=== PATIENT | female | born 1990 | race Caucasian/White ===

== ENCOUNTER 2017-07-26 17:07 | Emergency (ER) | payer OTHER ==
[2017-07-26 19:34] LABS: URINE BLOOD (Dip) POC Negative (NEGATIVE); URINE GLUCOSE (Dip) POC Negative (NEGATIVE); URINE KETONES (Dip) POC 3+ (NEGATIVE); URINE LEUKOCYTE EST (Dip) POC 1+ (NEGATIVE); URINE NITRITE (Dip) POC Negative (NEGATIVE); URINE TOTAL PROTEIN POC Negative (NEGATIVE)
== END 2017-07-26 20:24 | disposition home or self-care (01) ==
LOC: FTE 17:07
DX: N30.90 Cystitis, unspecified without hematuria (principal)
CPT/HCPCS: 81003; 99283

== ENCOUNTER 2018-01-12 09:50 | Emergency (ER) | payer OTHER ==
[2018-01-12] MEDS: SOD CHLORIDE 0.9% 1,000 ML IV (10:32)
[2018-01-12] MEDS: ASPIRIN 325 MG TAB PO (10:32)
[2018-01-12] MEDS: ONDANSETRON 4 MG INJ IV (10:33)
[2018-01-12 10:40] LABS: ADD MAN DIFF? NO
[2018-01-12 10:41] LABS: BASOPHILS % 0.6 % (0.0-2.0); EOSINOPHILS # 0.3 10^3/ul (0.0-0.5); EOSINOPHILS % 3.8 % (0.0-7.0); HEMATOCRIT 38.5 % (37.0-47.0); HEMOGLOBIN 12.6 g/dl (12.0-16.0); LYMPHOCYTES # 2.2 10^3/ul (0.8-2.9); LYMPHOCYTES % 31.5 % (15.0-51.0); MEAN CORPUSCULAR HEMOGLOBIN 28.5 pg (29.0-33.0); MEAN CORPUSCULAR HGB CONC 32.7 g/dl (32.0-37.0); MEAN CORPUSCULAR VOLUME 87.1 fl (82.0-101.0); MEAN PLATELET VOLUME 12.4 fl (7.4-10.4); MONOCYTE # 0.5 10^3/ul (0.3-0.9); MONOCYTES % 6.9 % (0.0-11.0); NEUTROPHIL # 4.1 10^3/ul (1.6-7.5); NEUTROPHILS % 57.1 % (39.0-77.0); PLATELET COUNT 171 10^3/UL (140-415); RED BLOOD COUNT 4.42 10^6/ul (4.20-5.40); RED CELL DISTRIBUTION WIDTH 14.3 % (11.5-14.5)
[2018-01-12 10:41] LABS: WHITE BLOOD COUNT 7.1 10^3/ul (4.8-10.8)
[2018-01-12 10:51] LABS: ADD UMIC YES; UR ASCORBIC ACID NEGATIVE (NEGATIVE); UR BACTERIA FEW /HPF (NONE SEEN); UR BILIRUBIN (Dip) NEGATIVE (NEGATIVE); UR BLOOD (Dip) NEGATIVE (NEGATIVE); UR CLARITY CLOUDY (CLEAR); UR COLOR YELLOW (YELLOW); UR GLUCOSE (Dip) NEGATIVE (NEGATIVE); UR KETONES (Dip) 1+ mg/dL (NEGATIVE); UR LEUKOCYTE ESTERASE (Dip) 2+ Leu/ul (NEGATIVE); UR MUCUS MODERATE /HPF (NONE SEEN); UR NITRITE (Dip) NEGATIVE (NEGATIVE); UR RBC 1 /HPF (0-5); UR SPECIFIC GRAVITY (Dip) 1.021 (1.003-1.030); UR SQUAMOUS EPITHELIAL CELL MANY /HPF (FEW); UR TOTAL PROTEIN (Dip) NEGATIVE (NEGATIVE); UR UROBILINOGEN (Dip) NEGATIVE (NEGATIVE); UR WBC 9 /HPF (0-5)
[2018-01-12 11:04] LABS: ALANINE AMINOTRANSFERASE 16 IU/L (13-69); ALBUMIN 4.4 g/dl (3.3-4.9); ALBUMIN/GLOBULIN RATIO 1.41; ALKALINE PHOSPHATASE 63 IU/L (42-121); ANION GAP 18 (8-16); ASPARTATE AMINO TRANSFERASE 18 IU/L (15-46); BLOOD UREA NITROGEN 13 mg/dl (7-20); CALCIUM 9.1 mg/dl (8.4-10.2); CARBON DIOXIDE 26 mmol/L (21-31); CHLORIDE 102 mmol/L (97-110); CREATININE 0.58 mg/dl (0.44-1.00); GLUCOSE 83 mg/dl (70-220); POTASSIUM 3.3 mmol/L (3.5-5.1); SODIUM 143 mmol/L (135-144); TOTAL PROTEIN 7.5 g/dl (6.1-8.1)
[2018-01-12 11:20] LABS: TROPONIN-I < 0.012 ng/ml (0.000-0.120)
[2018-01-12 12:33] LABS: INR 1.05; PROTIME 13.8 Sec (11.9-14.9); PT RATIO 1.1
[2018-01-12] MEDS: LORAZEPAM 1 MG TAB PO (12:59)
[2018-01-12] MEDS: POTASSIUM CHLORIDE (SR) 20 MEQ TAB PO (13:00)
== END 2018-01-12 13:13 | disposition home or self-care (01) ==
LOC: FTE 09:50
DX: N39.0 Urinary tract infection, site not specified (principal); F41.9 Anxiety disorder, unspecified; Z79.82 Long term (current) use of aspirin
CPT/HCPCS: 71046; 80053; 81001; 81025; 84484; 85025; 85610; 85730; 93005; 96361; 96374; 99285-25

== ENCOUNTER 2018-08-20 17:30 | Emergency (ER) | payer OTHER ==
[2018-08-20] MEDS: SOD CHLORIDE 0.9% 500 ML IV (22:06)
[2018-08-20 22:07] LABS: ADD MAN DIFF? NO
[2018-08-20 22:10] LABS: WHITE BLOOD COUNT 10.4 10^3/ul (4.8-10.8)
[2018-08-20 22:10] LABS: BASOPHILS % 0.4 % (0.0-2.0); EOSINOPHILS # 0.4 10^3/ul (0.0-0.5); EOSINOPHILS % 3.6 % (0.0-7.0); HEMATOCRIT 35.1 % (37.0-47.0); HEMOGLOBIN 11.5 g/dl (12.0-16.0); LYMPHOCYTES # 2.8 10^3/ul (0.8-2.9); LYMPHOCYTES % 26.5 % (15.0-51.0); MEAN CORPUSCULAR HEMOGLOBIN 27.3 pg (29.0-33.0); MEAN CORPUSCULAR HGB CONC 32.8 g/dl (32.0-37.0); MEAN CORPUSCULAR VOLUME 83.2 fl (82.0-101.0); MEAN PLATELET VOLUME 11.7 fl (7.4-10.4); MONOCYTE # 0.8 10^3/ul (0.3-0.9); MONOCYTES % 7.2 % (0.0-11.0); NEUTROPHIL # 6.5 10^3/ul (1.6-7.5); PLATELET COUNT 232 10^3/UL (140-415); RED BLOOD COUNT 4.22 10^6/ul (4.20-5.40)
[2018-08-20 22:21] LABS: ADD UMIC YES; UR AMORPHOUS CRYSTAL MODERATE /HPF (NONE SEEN); UR ASCORBIC ACID NEGATIVE (NEGATIVE); UR BACTERIA FEW /HPF (NONE SEEN); UR BILIRUBIN (Dip) NEGATIVE (NEGATIVE); UR BLOOD (Dip) NEGATIVE (NEGATIVE); UR CLARITY CLOUDY (CLEAR); UR COLOR YELLOW (YELLOW); UR GLUCOSE (Dip) 3+ mg/dL (NEGATIVE); UR KETONES (Dip) 1+ mg/dL (NEGATIVE); UR LEUKOCYTE ESTERASE (Dip) NEGATIVE Leu/ul (NEGATIVE); UR MUCUS MANY /HPF (NONE SEEN); UR NITRITE (Dip) NEGATIVE (NEGATIVE); UR RBC 3 /HPF (0-5); UR SPECIFIC GRAVITY (Dip) 1.025 (1.003-1.030); UR SQUAMOUS EPITHELIAL CELL FEW /HPF (FEW); UR TOTAL PROTEIN (Dip) NEGATIVE (NEGATIVE); UR UROBILINOGEN (Dip) 1+ mg/dL (NEGATIVE); UR WBC 2 /HPF (0-5)
[2018-08-20 22:30] LABS: ANION GAP 13 (5-13); BLOOD UREA NITROGEN 10 mg/dl (7-20); CALCIUM 9.2 mg/dl (8.4-10.2); CARBON DIOXIDE 22 mmol/L (21-31); CHLORIDE 104 mmol/L (97-110); CREATININE 0.38 mg/dl (0.44-1.00); Estimated GFR > 60 mL/min (>60); GLUCOSE 96 mg/dl (70-220); SODIUM 139 mmol/L (135-144)
[2018-08-20 22:34] LABS: D-DIMER 699.71 ng/ml (<460)
[2018-08-20 22:40] LABS: INR 0.85; PROTIME 11.7 Sec (11.9-14.9); PT RATIO 0.9
[2018-08-20 22:41] LABS: PARTIAL THROMBOPLASTIN TIME 28.6 Sec (23.0-35.0)
[2018-08-20 22:42] LABS: TROPONIN-I < 0.012 ng/ml (0.000-0.120)
[2018-08-20] MEDS: POTASSIUM CHLORIDE (SR) 20 MEQ TAB PO (23:16)
== END 2018-08-21 00:05 | disposition home or self-care (01) ==
LOC: FTE 08-21 00:05
DX: O99.89 Other specified diseases and conditions complicating pregnancy, childbirth and the puerperium (principal); R07.9 Chest pain, unspecified; E87.6 Hypokalemia; O99.281 Endocrine, nutritional and metabolic diseases complicating pregnancy, first trimester; O99.011 Anemia complicating pregnancy, first trimester; D64.9 Anemia, unspecified; Z3A.14 14 weeks gestation of pregnancy
CPT/HCPCS: 36415; 80048; 81001; 84484; 85025; 85378; 85610; 85730; 93005; 96360; 99284-25

== ENCOUNTER 2019-01-05 12:19 | Inpatient (IN) | payer OTHER ==
[2019-01-05 13:28] LABS: ADD MAN DIFF? NO
[2019-01-05 13:35] LABS: WHITE BLOOD COUNT 8.1 10^3/ul (4.8-10.8)
[2019-01-05 13:35] LABS: ABNORMAL IP MESSAGE 1; BASOPHILS % 0.5 % (0.0-2.0); EOSINOPHILS # 0.2 10^3/ul (0.0-0.5); EOSINOPHILS % 2.1 % (0.0-7.0); HEMATOCRIT 24.3 % (37.0-47.0); HEMOGLOBIN 7.2 g/dl (12.0-16.0); LYMPHOCYTES # 1.8 10^3/ul (0.8-2.9); LYMPHOCYTES % 21.7 % (15.0-51.0); MEAN CORPUSCULAR HEMOGLOBIN 21.5 pg (29.0-33.0); MEAN CORPUSCULAR HGB CONC 29.6 g/dl (32.0-37.0); MEAN CORPUSCULAR VOLUME 72.5 fl (82.0-101.0); MEAN PLATELET VOLUME 11.7 fl (7.4-10.4); MONOCYTE # 0.4 10^3/ul (0.3-0.9); MONOCYTES % 4.3 % (0.0-11.0); NEUTROPHIL # 5.8 10^3/ul (1.6-7.5); NEUTROPHILS % 70.8 % (39.0-77.0); PLATELET COUNT 167 10^3/UL (140-415); RED BLOOD COUNT 3.35 10^6/ul (4.20-5.40)
[2019-01-05 13:37] LABS: ADD UMIC YES; POSITIVE DIFF @See below; UR ASCORBIC ACID NEGATIVE (NEGATIVE); UR BACTERIA FEW /HPF (NONE SEEN); UR BILIRUBIN (Dip) NEGATIVE (NEGATIVE); UR BLOOD (Dip) NEGATIVE (NEGATIVE); UR CLARITY SLIGHTLY CLOUDY (CLEAR); UR COLOR YELLOW (YELLOW); UR GLUCOSE (Dip) NEGATIVE (NEGATIVE); UR KETONES (Dip) NEGATIVE (NEGATIVE); UR LEUKOCYTE ESTERASE (Dip) TRACE Leu/ul (NEGATIVE); UR MUCUS FEW /HPF (NONE SEEN); UR NITRITE (Dip) NEGATIVE (NEGATIVE); UR RBC 0 /HPF (0-5); UR SPECIFIC GRAVITY (Dip) 1.016 (1.003-1.030); UR SQUAMOUS EPITHELIAL CELL FEW /HPF (FEW); UR TOTAL PROTEIN (Dip) NEGATIVE (NEGATIVE); UR UROBILINOGEN (Dip) NEGATIVE (NEGATIVE); UR WBC 4 /HPF (0-5)
[2019-01-05 13:53] LABS: ALANINE AMINOTRANSFERASE 9 IU/L (13-69); ALBUMIN 3.3 g/dl (3.3-4.9); ALBUMIN/GLOBULIN RATIO 1.03; ALKALINE PHOSPHATASE 83 IU/L (42-121); AMYLASE 116 U/L (11-123); ANION GAP 6 (5-13); ASPARTATE AMINO TRANSFERASE 13 IU/L (15-46); BILIRUBIN,INDIRECT 0.6 mg/dl (0-1.1); BILIRUBIN,TOTAL 0.6 mg/dl (0.2-1.3); BLOOD UREA NITROGEN 8 mg/dl (7-20); CALCIUM 8.5 mg/dl (8.4-10.2); CARBON DIOXIDE 22 mmol/L (21-31); CHLORIDE 107 mmol/L (97-110); CREATININE 0.48 mg/dl (0.44-1.00); Estimated GFR > 60 mL/min (>60); GLUCOSE 127 mg/dl (70-220); LIPASE 122 U/L (23-300); POTASSIUM 3.7 mmol/L (3.5-5.1); SODIUM 135 mmol/L (135-144); TOTAL PROTEIN 6.5 g/dl (6.1-8.1)
[2019-01-05] MEDS: CEFTRIAXONE 1 GM/50 ML (PMX) 50 ML IVPB (17:45)
[2019-01-05] MEDS: SOD CHLORIDE 0.9% 1,000 ML IV (17:45)
[2019-01-05] MEDS: ACETAMINOPHEN 325 MG TAB PO ×2 (17:52→20:25)
[2019-01-05] MEDS: HYDROCODONE/APAP (5/325) TAB PO (22:03)
[2019-01-06] MEDS: SOD CHLORIDE 0.9% 1,000 ML IV (01:11)
[2019-01-06] MEDS ORDERED: FERROUS FUMARATE (SR) TAB PO (09:00)
[2019-01-06] MEDS: PRENATAL VITAMIN PO (11:56)
[2019-01-06] MEDS: FERROUS SULFATE (EC) 325 MG TAB PO (11:56)
== END 2019-01-06 12:47 | disposition home or self-care (01) | DRG 833 ==
LOC: OBT 12:19 → L-D 12:19 → OBT 17:00 → L-D 17:00
DX: O23.03 Infections of kidney in pregnancy, third trimester (principal); Z3A.33 33 weeks gestation of pregnancy
CPT/HCPCS: 76705; 76817; 76818; 80053; 81001; 82150; 83690; 85025; 87086

== ENCOUNTER 2019-02-06 14:06 | Outpatient (CLI) | payer OTHER ==
[2019-02-06] MEDS: BETAMET NA PHOS/AC(6 MG/ML) 2 ML INJ SYG IM (16:00)
[2019-02-06 18:43] LABS: ABNORMAL IP MESSAGE 1; HEMATOCRIT 23.1 % (37.0-47.0); MEAN CORPUSCULAR HEMOGLOBIN 20.1 pg (29.0-33.0); MEAN CORPUSCULAR HGB CONC 29.4 g/dl (32.0-37.0); MEAN CORPUSCULAR VOLUME 68.3 fl (82.0-101.0); MEAN PLATELET VOLUME 11.2 fl (7.4-10.4); PLATELET COUNT 156 10^3/UL (140-415); RED BLOOD COUNT 3.38 10^6/ul (4.20-5.40); RED CELL DISTRIBUTION WIDTH 18.4 % (11.5-14.5)
[2019-02-06 18:43] LABS: WHITE BLOOD COUNT 7.8 10^3/ul (4.8-10.8)
[2019-02-06 18:49] LABS: ADD MAN DIFF? YES; HEMOGLOBIN 6.8 g/dl (12.0-16.0); POSITIVE DIFF @See below
[2019-02-06 19:00] LABS: ALANINE AMINOTRANSFERASE 12 IU/L (13-69); ALBUMIN 3.1 g/dl (3.3-4.9); ALKALINE PHOSPHATASE 125 IU/L (42-121); AMYLASE 94 U/L (11-123); ANION GAP 7 (5-13); ASPARTATE AMINO TRANSFERASE 13 IU/L (15-46); BILIRUBIN,INDIRECT 0.5 mg/dl (0-1.1); BILIRUBIN,TOTAL 0.5 mg/dl (0.2-1.3); BLOOD UREA NITROGEN 12 mg/dl (7-20); CALCIUM 8.7 mg/dl (8.4-10.2); CARBON DIOXIDE 22 mmol/L (21-31); CHLORIDE 109 mmol/L (97-110); CREATININE 0.46 mg/dl (0.44-1.00); Estimated GFR > 60 mL/min (>60); GLUCOSE 77 mg/dl (70-220); LIPASE 155 U/L (23-300); POTASSIUM 3.9 mmol/L (3.5-5.1); SODIUM 138 mmol/L (135-144); TOTAL PROTEIN 6.2 g/dl (6.1-8.1)
[2019-02-06 19:22] LABS: ANISOCYTOSIS 2+ (0-0); EOSINOPHILS % (M) 1 % (0-7); GIANT THROMBO% (M) 12 % (0-0); LYMPHOCYTES #M 2.3 10^3/ul (0.8-2.9); LYMPHOCYTES % (M) 30 % (15-51); MICROCYTOSIS 2+ (0-0); MONOCYTE #M 0.3 10^3/ul (0.3-0.9); MONOCYTES % (M) 4 % (0-11); PLATELET ESTIMATE NORMAL; POIKILOCYTOSIS 2+ (0-0); POLYCHROMASIA 2+ (0-0); SEGMENTED NEUTROPHILS (M) % 65 % (39-77); SMUDGE%M 1 % (0-0)
[2019-02-06] MEDS: LACTATED RINGER'S 1,000 ML IV (21:04)
[2019-02-06] MEDS: SOD FERRIC GLUC COMPLX 125 MG in SOD CHLORIDE 0.9% 100 ML IVPB ×2 (21:05→23:00)
[2019-02-07] MEDS ORDERED: SOD FERRIC GLUC COMPLX 125 MG in SOD CHLORIDE 0.9% 100 ML IVPB (13:00)
== END 2019-02-06 23:48 | disposition home or self-care (01) ==
LOC: OBT 14:06 → L-D 14:07 → OBT 23:48
DX: O22.23 Superficial thrombophlebitis in pregnancy, third trimester (principal); O36.8330 Maternal care for abnormalities of the fetal heart rate or rhythm, third trimester, not applicable or unspecified; Z3A.38 38 weeks gestation of pregnancy
CPT/HCPCS: 76818; 80053; 82150; 83690; 85025

== ENCOUNTER 2019-02-08 09:00 | Outpatient (CLI) | payer OTHER | END 2019-02-08 10:15 | disposition home or self-care (01) | LOC: OBT 09:00 → L-D 09:02 → OBT 10:15 | DX: O36.8130 Decreased fetal movements, third trimester, not applicable or unspecified (principal); Z3A.38 38 weeks gestation of pregnancy | CPT/HCPCS: 76815; 76818 ==

== ENCOUNTER 2019-02-09 07:18 | Inpatient (IN) | payer OTHER ==
[2019-02-09] MEDS: LACTATED RINGER'S 1,000 ML IV ×3 (09:43→15:36)
[2019-02-09] MEDS ORDERED: MISOPROSTOL 200 MCG TAB PR (10:00)
[2019-02-09] MEDS ORDERED: OXYTOCIN 30 UNITS/LR 500 ML IV ×2 (10:00)
[2019-02-09] MEDS ORDERED: LIDOCAINE 1% (MPF) 30 ML INJ INJ (10:00)
[2019-02-09] MEDS ORDERED: CARBOPROST 250 MCG INJ IM (10:00)
[2019-02-09] MEDS ORDERED: BUTORPHANOL 2 MG INJ IV (10:00)
[2019-02-09] MEDS ORDERED: METHYLERGONOVINE 0.2 MG INJ IM (10:00)
[2019-02-09 10:20] LABS: ADD UMIC NO; UR ASCORBIC ACID NEGATIVE (NEGATIVE); UR BACTERIA FEW /HPF (NONE SEEN); UR BILIRUBIN (Dip) NEGATIVE (NEGATIVE); UR BLOOD (Dip) NEGATIVE (NEGATIVE); UR CLARITY SLIGHTLY CLOUDY (CLEAR); UR COLOR YELLOW (YELLOW); UR GLUCOSE (Dip) NEGATIVE (NEGATIVE); UR KETONES (Dip) NEGATIVE (NEGATIVE); UR LEUKOCYTE ESTERASE (Dip) NEGATIVE Leu/ul (NEGATIVE); UR MUCUS FEW /HPF (NONE SEEN); UR NITRITE (Dip) NEGATIVE (NEGATIVE); UR RBC 0 /HPF (0-5); UR SPECIFIC GRAVITY (Dip) 1.019 (1.003-1.030); UR SQUAMOUS EPITHELIAL CELL FEW /HPF (FEW); UR TOTAL PROTEIN (Dip) NEGATIVE (NEGATIVE); UR UROBILINOGEN (Dip) NEGATIVE (NEGATIVE); UR WBC 2 /HPF (0-5)
[2019-02-09 10:21] LABS: ADD MAN DIFF? NO
[2019-02-09 10:30] LABS: WHITE BLOOD COUNT 8.9 10^3/ul (4.8-10.8)
[2019-02-09 10:30] LABS: ABNORMAL IP MESSAGE 1; BASOPHILS % 0.4 % (0.0-2.0); EOSINOPHILS # 0.2 10^3/ul (0.0-0.5); EOSINOPHILS % 1.9 % (0.0-7.0); HEMATOCRIT 24.6 % (37.0-47.0); HEMOGLOBIN 7.1 g/dl (12.0-16.0); LYMPHOCYTES # 2.2 10^3/ul (0.8-2.9); LYMPHOCYTES % 24.5 % (15.0-51.0); MEAN CORPUSCULAR HEMOGLOBIN 20.2 pg (29.0-33.0); MEAN CORPUSCULAR HGB CONC 28.9 g/dl (32.0-37.0); MEAN CORPUSCULAR VOLUME 69.9 fl (82.0-101.0); MONOCYTE # 0.6 10^3/ul (0.3-0.9); MONOCYTES % 6.2 % (0.0-11.0); NEUTROPHIL # 5.9 10^3/ul (1.6-7.5); PLATELET COUNT 185 10^3/UL (140-415); RED BLOOD COUNT 3.52 10^6/ul (4.20-5.40); RED CELL DISTRIBUTION WIDTH 18.8 % (11.5-14.5)
[2019-02-09 10:32] LABS: POSITIVE DIFF @See below
[2019-02-09] MEDS: AMPICILLIN 2 GM/NS (PMX) 100 ML IV (10:38)
[2019-02-09 11:33] LABS: INR 0.91; PROTIME 12.4 Sec (11.9-14.9)
[2019-02-09 11:34] LABS: PARTIAL THROMBOPLASTIN TIME 26.7 Sec (23.0-35.0)
[2019-02-09] MEDS: MINERAL OIL LIGHT 10 ML VIAL TOP (13:00)
[2019-02-09] MEDS: AMPICILLIN 1 GM/NS (PMX) 50 ML IV ×3 (13:50→21:36)
[2019-02-09 14:02] LABS: HEPATITIS B SURFACE ANTIGEN NEGATIVE (NEGATIVE)
[2019-02-09] MEDS ORDERED: FENTAnyl 2MCG/ML-ROPIV 0.2% 100 ML (14:38)
[2019-02-09] MEDS ORDERED: NALOXONE (0.4 MG/ML) INJ IV (15:00)
[2019-02-09 15:09] LABS: RAPID PLASMA REAGIN NONREACTIVE (NR)
[2019-02-09] MEDS: OXYTOCIN 30 UNITS/LR 500 ML IV (15:43)
[2019-02-09] MEDS: FENTAnyl 2MCG/ML-ROPIV 0.2% 100 ML BAG EPI ×2 (16:10→23:46)
[2019-02-10] MEDS: LACTATED RINGER'S 1,000 ML IV* ×2 (00:08→08:08)
[2019-02-10] MEDS: OXYTOCIN 30 UNITS/LR 500 ML IV (00:20)
[2019-02-10] MEDS ORDERED: CARBOPROST 250 MCG INJ IM (00:30)
[2019-02-10] MEDS ORDERED: ONDANSETRON 4 MG TAB PO (00:30)
[2019-02-10] MEDS ORDERED: SENNA/DOCUSATE NA (8.6MG/50MG) TAB PO (00:30)
[2019-02-10] MEDS ORDERED: DIBUCAINE 1% 30 GM OINT TOP (00:30)
[2019-02-10] MEDS ORDERED: DIPHENHYDRAMINE 50 MG INJ IV (00:30)
[2019-02-10] MEDS ORDERED: MISOPROSTOL 200 MCG TAB PR (00:30)
[2019-02-10] MEDS ORDERED: DIPHENHYDRAMINE 25 MG CAP PO (00:30)
[2019-02-10] MEDS ORDERED: ONDANSETRON 4 MG INJ IV (00:30)
[2019-02-10] MEDS ORDERED: NA PHOSPHATE/BIPHOS 133 ML ENEMA PR (00:30)
[2019-02-10] MEDS ORDERED: MAGNESIUM HYDROXIDE 30ML CUP PO (00:30)
[2019-02-10] MEDS ORDERED: OXYTOCIN 30 UNITS/LR 500 ML IV (00:30)
[2019-02-10] MEDS: HYDROCODONE/APAP (5/325) TAB PO ×3 (00:45→22:23)
[2019-02-10] MEDS: LACTATED RINGER'S 1,000 ML IV (01:36)
[2019-02-10] MEDS: WITCH HAZEL/GLYCERIN PAD PR (05:34)
[2019-02-10] MEDS: IBUPROFEN 600 MG TAB PO ×3 (05:34→17:20)
[2019-02-10] MEDS: BENZOCAINE 20% 56 ML SPRAY TOP (05:35)
[2019-02-10] MEDS: LANOLIN HPA 1 PKT TOP (05:35)
[2019-02-10] MEDS: SENNA/DOCUSATE NA (8.6MG/50MG) TAB PO ×2 (08:48→21:12)
[2019-02-11] MEDS: IBUPROFEN 600 MG TAB PO ×3 (00:11→12:19)
[2019-02-11 07:15] LABS: ADD MAN DIFF? NO
[2019-02-11 07:18] LABS: WHITE BLOOD COUNT 10.4 10^3/ul (4.8-10.8)
[2019-02-11 07:18] LABS: ABNORMAL IP MESSAGE 1; BASOPHILS % 0.3 % (0.0-2.0); EOSINOPHILS # 0.2 10^3/ul (0.0-0.5); EOSINOPHILS % 2.3 % (0.0-7.0); HEMATOCRIT 21.2 % (37.0-47.0); LYMPHOCYTES # 2.9 10^3/ul (0.8-2.9); LYMPHOCYTES % 27.7 % (15.0-51.0); MEAN CORPUSCULAR HEMOGLOBIN 20.6 pg (29.0-33.0); MEAN CORPUSCULAR HGB CONC 28.8 g/dl (32.0-37.0); MEAN CORPUSCULAR VOLUME 71.6 fl (82.0-101.0); MONOCYTE # 0.6 10^3/ul (0.3-0.9); NEUTROPHIL # 6.6 10^3/ul (1.6-7.5); PLATELET COUNT 147 10^3/UL (140-415); RED BLOOD COUNT 2.96 10^6/ul (4.20-5.40); RED CELL DISTRIBUTION WIDTH 20.6 % (11.5-14.5)
[2019-02-11 07:22] LABS: HEMOGLOBIN 6.1 g/dl (12.0-16.0)
[2019-02-11 07:23] LABS: POSITIVE DIFF @See below
[2019-02-11] MEDS: SENNA/DOCUSATE NA (8.6MG/50MG) TAB PO (09:07)
[2019-02-11] MEDS: FERROUS SULFATE (EC) 325 MG TAB PO ×2 (09:07→13:00)
[2019-02-11] MEDS: HYDROCODONE/APAP (5/325) TAB PO (10:18)
[2019-02-12] MEDS ORDERED: DIPHTH/TET/ACEL PERTUSS (ADULT) 0.5 ML VIAL IM* (09:00)
[2019-02-12] MEDS ORDERED: MEASLES,MUMPS,RUBELLA VACCINE INJ SC* (09:00)
[2019-02-12] MEDS ORDERED: VARICELLA VACCINE LIVE/PF 1,350 UNIT/0.5 ML ML SC* (09:00)
== END 2019-02-11 16:27 | disposition home or self-care (01) | DRG 807 ==
LOC: OBT 07:18 → PP1 02-10 02:22 → L-D 07:18 → OBT 09:29 → L-D 09:29
PROC: 10E0XZZ Delivery of Products of Conception, External Approach (ICD-10-PCS; principal; 2019-02-10)
PROC: 3E033VJ Introduction of Other Hormone into Peripheral Vein, Percutaneous Approach (ICD-10-PCS; 2019-02-10)
DX: O69.81X0 Labor and delivery complicated by cord around neck, without compression, not applicable or unspecified (principal); Z37.0 Single live birth; Z3A.38 38 weeks gestation of pregnancy
CPT/HCPCS: 62322; 76818; 81001; 81003; 85025; 85610; 85730; 86592; 86850; 86900; 86901; 86920; 87086; 87340